=== PATIENT | female | born 1960 | race Hispanic/Latino ===

== ENCOUNTER → 2019-10-17 | Day surgery (SDC) | payer BC ==
[~2019-10-17] MED LIST: CRESTOR10 MG PO; FAMOTIDINE20 MG PO; FENTANYL CITRATE/PF 100MCG/2 ML INJ ONE; MELOXICAM15 MG PO; MIDAZOLAM HCL 2 MG/2 ML VIAL ONE; PANTOPRAZOLE SO40 MG PO
[2019-10-17 11:12] VITALS: BP 105/79
== END | disposition home or self-care (01) ==
LOC: OR 07:49
PROVIDERS: ATTEND Internal Medicine Gastroenterology
DX: K29.50 Unspecified chronic gastritis without bleeding (principal); K22.2 Esophageal obstruction; K21.0 Gastro-esophageal reflux disease with esophagitis; K44.9 Diaphragmatic hernia without obstruction or gangrene; Z71.3 Dietary counseling and surveillance; E66.3 Overweight; Z01.810 Encounter for preprocedural cardiovascular examination; Z68.26 Body mass index [BMI] 26.0-26.9, adult
CPT/HCPCS: 43233; 43239; 93005; J2250; J3010; 43235; 43450